=== PATIENT | male | born 1975 | race Caucasian/White ===

== ENCOUNTER 2021-05-09 10:33 | Emergency (ER) | payer BC ==
[~2021-05-09] VITALS: Ht 177.8 cm; Wt 90.7 kg
[2021-05-09 10:36] VITALS: BP 130/82
[2021-05-09] MEDS ORDERED: cefTRIAXone 1,000 MG VIAL IM STA (10:50)
[2021-05-09] MEDS ORDERED: LIDOCAINE 1% INJ 20 ML VIAL INJ STA (10:50)
--- NOTE | 2021-05-09 10:58 | ED Upper Extremity ---
General Stated Complaint: WOUND Source: patient History of Present Illness Date Seen by Provider: May 09, 2021 Time Seen by Provider: 10:33 Initial Comments 45 yo male presenting with crush injury to right hand middle and ring finger. He was trying to spot a teenager on lifting weights. The weight slipped and he tried to catch them. In the process he caught his right hand between the weights and the equipment. This caused a near amputation of the tip of his rig ht middle finger and an injury to the tip of his right ring finger. He is left- hand dominant. He denies any allergies to medications. He has full range of motion of all fingers of his hand. He has decreased sensation to the nearly avulsed tip of his finger tip of the middle finger. The nail appears to be avulsed on his middle finger. He is currently having cold symptoms and taking ivermectin for that. He is unsure of his last Tetanus booster. Onset: just prior to arrival Severity: moderate Pain/Injury Location: right 3rd finger, right 4th finger Method of Injury: sports injury Modifying Factors: Improves With Immobilization; Worse With Movement Allergies and Home Medications Allergies Coded Allergies: No Known Drug Allergies (Unverified , 05/09/21) Patient Home Medication List Home Medication List Reviewed: Yes Amoxicillin/Potassium Clav (Amox Tr-K Clv 875-125 mg Tab) 1 Each Tablet, 1 EACH PO BID Prescribed by: ZARINA JONES on 05/09/21 1219 Oxycodone HCl/Acetaminophen (Oxycodone-Acetaminophen 5-325) 1 Each Tablet, 1 EACH PO Q4H PRN for PAIN-SEVERE (8-10) Prescribed by: ZARINA JONES on 05/09/21 1219 Review of Systems Constitutional: no symptoms reported EENTM: nose congestion Respiratory: cough Cardiovascular: no symptoms reported Gastrointestinal: no symptoms reported Genitourinary: no symptoms reported Musculoskeletal: see HPI, other (pain to fingers where he has injuries on right hand) Skin: see HPI Psychiatric/Neurological: Numbness (decreased sensation to nearly avulsed fingertip of right middle finger) Past Vqtahar-Gtimwn-Vdhywb Hx Past Medical History Surgery/Hospitalization HX: Hypothyroid Physical Exam Vital Signs Vital Signs - First Documented 05/09/21 10:36 Temp 36.6 Pulse 71 Resp 16 B/P (MAP) 130/82 (98) Pulse Ox 96 O2 Delivery Room Air Capillary Refill : Height, Weight, BMI Height: '" Weight: lbs. oz. kg; BMI Method: General Appearance: WD/WN, mild distress HEENT: PERRL/EOMI Cardiovascular: normal peripheral pulses, regular rate, rhythm Shoulder: normal inspection, non-tender, no evidence of injury, normal ROM Elbow/Forearm: normal inspection, non-tender, no evidence of injury, normal ROM Wrist: Yes normal inspection, Yes non-tender, Yes no evidence of injury, Yes normal ROM Hand: normal ROM, Right, bone tenderness, laceration (right middle fingertip nearly avulsed with laceration and nail avulsed, puncture laceration to right ring finger tip), nail injury (right middle finger nail avulsed), soft tissue tenderness Neurologic/Tendon: normal motor functions, normal tendon functions, sensory deficit (decreased sensation to nearly avulsed tissue of right middle finger) Neurologic/Psychiatric: alert, oriented x 3 Skin: normal color, warm/dry Procedures/Interventions Wound Location: Upper Extremities (right middle finger) Wound Length (cm): 3.2 Wound's Depth, Shape: irregular, flap, nail-avulsed, contused tissue, bone, sub Q Wound Explored: clean Irrigated w/ Saline (ccs): 500 Anesthesia: 1% Lidocaine (Digital block) Volume Anesthetic (ccs): 5 Suture: Prolene Suture Size: 4-0 Number of Sutures: 5 Sterile Dressing Applied?: Yes Progress Patient was verbally consented for the procedure. He had digital block placed on both the middle and ring finger of his right hand and then a turnicot placed on each finger to help maintain hemostasis and prolonged anesthetic effect. The middle finger was irrigated with 500 mils of sterile water and chlorhexidine scrub soap solution. There were no foreign bodies visualized. Clot was removed with the irrigation and using a sterile 4 x 4 gauze pad. The finger was then prepped and draped in a sterile fashion. Using 4-0 Prolene 5 simple interrupted stitches were used to loosely approximate the wound edges and hold the flap of the nearly avulsed fingertip of the middle finger in place. Patient tolerated procedure well without any immediate complications. Wound edges were well approximated. Sterile dressing with Xeroform and antibiotic ointment applied by the nurse. A splint was supplied to use once the initial bulky dressing was removed. Counseled to keep the wound covered and to follow-up with hand surgeon as soon as possible. Patient plans to try and see the same hand surgeon that his son is going to see is upcoming week for his son's own hand injury. Wound Location: Upper Extremities (right ring finger) Wound Length (cm): 1.3 Wound's Depth, Shape: irregular, contused tissue, sub Q Wound Explored: clean Irrigated w/ Saline (ccs): 500 Anesthesia: 1% Lidocaine (Digital block) Volume Anesthetic (ccs): 5 Suture: Prolene Suture Size: 4-0 Number of Sutures: 2 Sterile Dressing Applied?: Yes Progress Patient was verbally consented for the procedure. He had a digital block placed on both the middle and ring finger of his right hand and then a turnicot placed on each finger to help maintain hemostasis and prolonged anesthetic effect. The wound was then irrigated with 500 mL of sterile water and chlorhexidine scrub soap solution. A subungual hematoma was relieved by using an 18-gauge needle to penetrate the nail of his ring finger. Then the finger was prepped and draped in a sterile fashion. Using 4-0 Prolene to simple interrupted stitches were placed in the laceration to the side of his finger. This was to loosely approximate the irregular wound edges of the contused tissue with laceration. Patient tolerated procedure well without any immediate complication. Wound was dressed with a sterile dressing and bulky dressing. A splint was supplied to be used after the initial bulky dressing was removed in 36 to 48 hours. Advised to continue to keep the wound dressed and covered. Counseled on follow-up and return precautions. Advised to see a hand surgeon this upcoming week. He plans to see the same hand surgeon that his son is planning on going to in [place]. Progress/Results/Core Measures Results/Orders My Orders Orders - ZARINA JONES MD Finger(S) (05/09/21 10:49) Suture Set At Bedside (05/09/21 10:50) Lidocaine 1% Inj 20 Ml (Xylocaine 1% Inj (05/09/21 10:50) Dipht,Pertuss(Acell),Tet Adult (Boostrix (05/09/21 11:00) Ceftriaxone (Rocephin) (05/09/21 10:50) Lidocaine 1% Inj 20 Ml (Xylocaine 1% Inj (05/09/21 11:00) Morphine Injection (Morphine Injection (05/09/21 12:20) Medications Given in ED Current Medications Medications Dose Ordered Sig/[place] Route Start Time Stop Time Status Last Admin Dose Admin Diphtheria/ Tetanus/Acell Pertussis 0.5 ml ONCE ONCE IM 05/09/21 11:00 05/09/21 11:01 DC 05/09/21 12:31 0.5 ML Lidocaine HCl 2.1 ml ONCE ONCE INJ 05/09/21 11:00 05/09/21 11:01 DC 05/09/21 12:32 2.1 ML Vital Signs/I&O 05/09/21 10:36 Temp 36.6 Pulse 71 Resp 16 B/P (MAP) 130/82 (98) Pulse Ox 96 O2 Delivery Room Air Progress Progress Note #1: Progress Note update tetanus booster, Rocephin antibiotic for exposed bone and nearly avulsed fingertip. Inject lidocaine for anesthetic and then placed tornicot on each finger at 1045. Will xray to determine bony injury involvement. Progress Note #2: Progress Note On my review of the x-rays of his fingers on his right hand he had open comminuted fractures of the middle and ring fingers. There is a flap of nearly avulsed tissue of the middle finger. No obvious foreign bodies were seen. I consulted Dr. Barraza, [facility], about injury regarding follow up and management. He advised that he could follow it but if the patient needs any interventions or flaps then he would need to see hand surgeon, so it would be better to refer to Hand surgeon now rather than delay him by coming to Dr. Barraza first. He recommends Dr. Wilson from [facility], and coincidentally this is the hand surgeon that the patient's son is supposed to be seeing this upcoming week for a hand injury of his own. They will contact him and try to get pt seen as well. After verbally consenting the patient for the procedure the fingers were cleaned with chlorhexidine scrub soap and sterile water. A 500 mL bottle of chlorhe xidine scrub soap and sterile water was flushed and irrigated through the open wounds. Wounds were loosely approximated and sterile dressing applied. Patient was counseled on follow-up and return precautions. Counseled on signs of infection to watch for. His son is trying to get in with a hand surgeon this upcoming week as well so they will call Tuesday to try and be seen for both of them. Given a prescription for Percocet for severe pain, Augmentin for wound prophylaxis and to try and help prevent osteomyelitis with exposed bone. Counseled that he could take ibuprofen for inflammation and pain. Stressed to elevate his hand above heart level at all times to try and help with throbbing and pain. Progress Note #3: Progress Note After removal of the turnicot's patient was starting to complain of pain prior to application of wound dressing. A morphine shot was added on and prescription for Percocet was sent to the pharmacy in addition to the Augmentin antibiotic. Initially had discussed doing hydrocodone but since that patient was complaining of so much pain and had said that he had tolerated oxycodone in the past for a toe injury will try the Percocet. Advised that he could also do ibuprofen to help with pain in addition to aggressive elevation of his hand Diagnostic Imaging Diagonstic Imaging: Xray Plain Films/CT/US/NM/MRI: hand Comments [facility] [place], [place] NAME: AMBROCIO PIERRE [facility] REC#: [id number] PT STATUS: REG ER : 1975 PHYSICIAN: ZARINA JONES MD ADMIT DATE: 05/09/21/ER FS Signed Date of Exam:05/09/21 FINGER(S) INDICATION: crush injury with laceration right middle and ring fingertips TECHNIQUE: AP view right hand along with 2 additional views centered at the 3rd and4th finger 10:55 AM CORRELATION STUDY: None FINDINGS: There is comminuted, multipart fracture involving the distal bill of the 3rd and 4th distal phalanges. There is slight outward displacement main fracture fragments. There is soft tissue defects involving the tips of both of these fingers as well, greatest involving the middle digit. No definitive foreign body. The proximal and middle phalanges of the 3rd and 4th fingers are intact. Rings project over the proximal phalanges of these digits. The remaining osseous structures otherwise intact and in normal alignment. IMPRESSION: 1. Comminuted, mildly displaced fractures involving the tips of the middle and ring fingers right hand. Overlying soft tissue defects without definitive foreign body. Dictated by: Dictated on workstation # [id number] Dict: 05/09/21 1111 Trans: 05/09/21 1127 [facility] [id number] Interpreted by: JERMAINE MANLEY DO Electronically signed by: JERMAINE MANLEY DO 05/09/21 1127 Reviewed: Reviewed by Me Departure Impression Primary Impression: Displaced fracture of distal phalanx of right middle finger, initial enc ounter for open fracture Additional Impressions: Displaced fracture of distal phalanx of right ring finger, initial encounter for open fracture Traumatic avulsion of nail plate of finger Qualified Codes: S61.309A - Unspecified open wound of unspecified finger with damage to nail, initial encounter Avulsion of fingertip Qualified Codes: S61.209A - Unspecified open wound of unspecified finger without damage to nail, initial encounter Laceration of right middle finger w/o foreign body with damage to nail Qualified Codes: S61.312A - Laceration without foreign body of right middle finger with damage to nail, initial encounter Laceration of right ring finger with damage to nail without foreign body Qualified Codes: S61.314A - Laceration without foreign body of right ring finger with damage to nail, initial encounter Crushing injury of right middle finger, initial encounter Crushing injury of right ring finger, initial encounter Subungual hematoma of right ring finger Disposition: 01 HOME, SELF-CARE Condition: Stable Departure-Patient Inst. Decision time for Depature: 12:31 Referrals: ISAIAS PIERRE DO (PCP/Family) Primary Care Physician BRANDY WILSON DO Patient Instructions: Finger Fracture ED, Laceration Repair With Stitches ED, Common Finger Injuries ED, Amputation of the Finger or Fingertip (DC), Nail Avulsion (DC) Add. Discharge Instructions: Try to keep hand elevated above the heart level at all times. You may use ibuprofen for pain and throbbing. For severe pain you may use the oxycodone with acetaminophen. If needed you could take additional acetaminophen but do not take more than 3000 to 4000 mg in a 24-hour. Each oxycodone pill has 325 mg of acetaminophen already included with it. Take the full course of antibiotics to help treat for the open fracture with exposed bone. This will help prevent infection to the bone. While taking the antibiotics you may experience diarrhea. Consider taking a Probiotic to help replace the good bacteria in your gut that will be killed off by the antibiotics. Keep the wound clean and dry and covered for the 1st 36 to 48 hours. After that you may remove the initial dressing applied in the emergency department and wash the wound gently with antibacterial soap and water. Then reapply antibiotic ointment and gauze dressing to keep the wounds clean. Use finger splint to help limit movement and protect the fingertips. Call the hand surgeon to follow-up as soon as possible for the wound to your fingers. If you see redness streaking up your hand or have pus draining from the wounds then be seen immediately as you would need IV antibiotics and the hand specialist may need to surgically debride or open wounds. Scripts Oxycodone HCl/Acetaminophen (Oxycodone-Acetaminophen 5-325) 1 Each Tablet 1 EACH PO Q4H PRN for PAIN-SEVERE (8-10) MDD 6 for 5 Days, #30 TAB 0 Refills Prov: ZARINA JONES MD 05/09/21 Amoxicillin/Potassium Clav (Amox Tr-K Clv 875-125 mg Tab) 1 Each Tablet 1 EACH PO BID for open fracture fingers for 10 Days, #20 TAB 0 Refills Prov: ZARNIA JONES MD 05/09/21 Images Extremities-Upper 1 - Contusion, Laceration (Near total avulsion of the distal fingertip of his right middle finger), Tenderness (Pain to the distal fingertip of his right middle finger. Avulsed nail. There is a total avulsion of the distal flap of the right middle fingertip) 2 - Contusion (Contusion and crush injury to the right ring finger with subungual hematoma), Laceration (1.3 cm laceration to the right ring finger), Tenderness ZARINA JONES MD May 09, 2021 10:58
[2021-05-09] MEDS ORDERED: TETANUS,DIPTH,PERTUSS P/F (BOOSTRIX) 0.5 ML VIAL IM ONE (11:00)
[2021-05-09] MEDS ORDERED: LIDOCAINE 1% INJ 20 ML VIAL INJ ONE (11:00)
--- NOTE | 2021-05-09 11:22 | Diagnostic Imaging Report ---
INDICATION: crush injury with laceration right middle and ring fingertips TECHNIQUE: AP view right hand along with 2 additional views centered at the 3rd and4th finger 10:55 AM CORRELATION STUDY: None FINDINGS: There is comminuted, multipart fracture involving the distal bill of the 3rd and 4th distal phalanges. There is slight outward displacement main fracture fragments. There is soft tissue defects involving the tips of both of these fingers as well, greatest involving the middle digit. No definitive foreign body. The proximal and middle phalanges of the 3rd and 4th fingers are intact. Rings project over the proximal phalanges of these digits. The remaining osseous structures otherwise intact and in normal alignment. IMPRESSION: 1. Comminuted, mildly displaced fractures involving the tips of the middle and ring fingers right hand. Overlying soft tissue defects without definitive foreign body. Dictated by: Dictated on workstation # [id number]
[2021-05-09] MEDS ORDERED: AMOX1TAB12 PO (12:19)
[2021-05-09] MEDS ORDERED: OXYC1TAB11 PO (12:19)
[2021-05-09] MEDS ORDERED: morphine INJ 10 MG/ML 1ML (SYR OR VIAL) IM STA (12:20)
== END 2021-05-09 13:00 | disposition home or self-care (01) ==
LOC: EDUNIT# 10:33 → ER FS 10:35
DX: S67.192A Crushing injury of right middle finger, initial encounter (principal); S67.194A Crushing injury of right ring finger, initial encounter; S67.21XA Crushing injury of right hand, initial encounter; S62.632B Displaced fracture of distal phalanx of right middle finger, initial encounter for open fracture; S62.634B Displaced fracture of distal phalanx of right ring finger, initial encounter for open fracture; W23.0XXA Caught, crushed, jammed, or pinched between moving objects, initial encounter; Y93.79 Activity, other specified sports and athletics; Z23 Encounter for immunization
CPT/HCPCS: 13152; 29130; 73140; 90471; 96372 ×2; 99284; A6223; 90715